=== PATIENT | female | born 1995 | race Caucasian/White ===

== ENCOUNTER 2017-10-06 06:42 | Day surgery (SDC) | payer OTHER ==
[2017-10-05 09:39] VITALS: BMI 22.8
[2017-10-06 13:19] VITALS: TEMP 98
[2017-10-06 13:42] VITALS: BP 107/61; PULSE 67
== END 2017-10-06 14:45 | disposition home or self-care (01) ==
LOC: JASU-SURG 06:42
PROVIDERS: ATTEND Plastic Surgery
PROC: 09SM0ZZ Reposition Nasal Septum, Open Approach (ICD-10-PCS; principal; 2017-10-06)
PROC: 090K0ZZ Alteration of Nasal Mucosa and Soft Tissue, Open Approach (ICD-10-PCS; 2017-10-06)
DX: J34.2 Deviated nasal septum (principal); J34.3 Hypertrophy of nasal turbinates; J34.89 Other specified disorders of nose and nasal sinuses
CPT/HCPCS: 84703; 88304-TC; 88311-TC; 94760